=== PATIENT | female | born 1950 | race Caucasian/White ===

== ENCOUNTER 2021-10-25 09:29 | Inpatient (IN) | payer MEDICARE, OTHER ==
[~2021-10-25] VITALS: Ht 157.5 cm; Wt 74.8 kg
[2021-10-25 10:00] LABS: HEMATOCRIT 42.4 % (31.2-41.9); MEAN CORPUSCULAR HEMOGLOBIN 30.4 uug (24.7-32.8); MEAN CORPUSCULAR VOLUME 91.8 fL (75.5-95.3); PLATELET COUNT (AUTO) 184 K/uL (179-408)
[2021-10-25 10:08] LABS: CARBON DIOXIDE 28 mmol/L (21-32); CHLORIDE 101 mmol/L (98-107); CREATININE 2.8 mg/dL (0.6-1.3); GLUCOSE 118 mg/dL (74-106); POTASSIUM 4.6 mmol/L (3.5-5.1); UREA NITROGEN, BLOOD 74 mg/dL (7-18)
[2021-10-25 10:24] LABS: ALANINE AMINOTRANSFERASE 15 U/L (14-59); ALKALINE PHOSPHATASE 72 U/L (50-136); ASPARTATE AMINOTRANSFERASE 18 U/L (15-37); BILIRUBIN,DIRECT 0.3 mg/dL (0.0-0.2); BILIRUBIN,TOTAL 0.6 mg/dL (0.2-1.0); TOTAL PROTEIN, SERUM 7.8 g/dL (6.4-8.2)
[2021-10-25 10:29] LABS: ABG BASE EXCESS -0.1 mmol/L; ABG HCO3 27.2 mmol/L; ABG PCO2 54.8 mmHg (35.0-45.0); ABG PH 7.313 (7.350-7.450); ABG PO2 68.9 mmHg (75.0-100.0); ABG SITE LEFT BRACHIAL; ABG TOTAL HEMOGLOBIN 14.2 G/dL (12.0-16.0); COHb 0.7 % (0.5-1.5); MetHb 0.2 % (0.0-1.5); O2Hb 92.9 % (94.0-97.0); VENT MODE Nasal Cannula
[2021-10-25] MEDS ORDERED: GABA-532 PO (10:40)
[2021-10-25] MEDS ORDERED: TRAZ-182 PO (10:40)
[2021-10-25] MEDS ORDERED: BACL20TA PO (10:40)
[2021-10-25] MEDS ORDERED: CLON0.1T PO (10:40)
[2021-10-25] MEDS ORDERED: QUET50TA PO (10:40)
[2021-10-25] MEDS ORDERED: ASPI81TA31 PO (10:40)
[2021-10-25] MEDS ORDERED: LOSA50TA39 PO (10:40)
[2021-10-25] MEDS ORDERED: NIFE-34 PO (10:40)
[2021-10-25] MEDS ORDERED: BUPR1FIL3 SL (10:40)
[2021-10-25] MEDS ORDERED: METO-356 PO (10:40)
[2021-10-25 10:58] LABS: *BILIRUBIN,URIN 1+ (NEGATIVE); *BLOOD, URINE NEGATIVE (NEGATIVE); *CLARITY,URINE CLEAR (CLEAR); *COLOR,URINE YELLOW (YELLOW); *KETONES,URINE NEGATIVE (NEGATIVE); *UROBILINOGEN,URINE 0.2 E.U./dl (NORMAL); LEUKOCYTE ESTERASE ,URINE NEGATIVE (NEGATIVE); NITRITE, URINE NEGATIVE (NEGATIVE); PH,URINE 5.5 (5.0-8.0); UGLUCOSE NEGATIVE (NEGATIVE)
[2021-10-25] MEDS ORDERED: PIPERACILLIN SODIUM/TAZOBACTAM 3.375 G in IV DEXTROSE 5% 50 ML IV ONE (11:00)
[2021-10-25] MEDS ORDERED: IV NORMAL SALINE 1000 ML BAG IV ONE (11:00)
[2021-10-25] MEDS ORDERED: PIPERACILLIN/TAZOBACTAM/D5W 50 ML IV ONE ×2 (11:16→22:39)
[2021-10-25] MEDS ORDERED: ASPIRIN 300 MG RECTAL SUPP RC ONE ×2 (12:15→12:26)
[2021-10-25] MEDS ORDERED: MORPHINE SULFATE 2 MG/1 ML DISP.SYRIN IV ONE ×2 (12:15→14:15)
[2021-10-25] MEDS ORDERED: DEXAMETHASONE SOD PHOSPHATE 4 MG INJ IV ONE (12:15)
[2021-10-25] MEDS ORDERED: MORPHINE SULFATE 2 MG/1 ML DISP.SYRIN ONE ×2 (12:25→14:20)
[2021-10-25] MEDS ORDERED: DEXAMETHASONE SOD PHOSPHATE 10 MG INJ ONE (12:25)
[2021-10-25] MEDS ORDERED: ALBUTEROL SULFATE 2.5 MG/ 0.5 ML NEBU NEB PRN (14:45)
[2021-10-25] MEDS ORDERED: ALBUTEROL SULFATE 2.5 MG/3 ML NEBU NEB PRN (15:00)
[2021-10-25] MEDS: IV D5 1/2 NS 1000 ML 1,000 ML IV PRN (15:49)
--- NOTE | 2021-10-25 16:35 | NUR ---
PT RESTING, AROUSABLE TO PAINFUL STIMULI.
[2021-10-25] MEDS ORDERED: PIPERACILLIN/TAZO 2.25 G in IV DEXTROSE 5% 50 ML IV SCH (18:00)
--- NOTE | 2021-10-25 19:20 | NUR ---
Assumed care of patient from day shift SOLA Bartlett. Patient [id number] bed. Asleep, appears lethargic. Inno apparent distress. On O2 at 4LPM via NC. IVF infusing.
[2021-10-25] MEDS ORDERED: PIPERACILLIN SODIUM/TAZOBACTAM 3.375 G in IV DEXTROSE 5% 100 ML IV SCH (23:00)
--- NOTE | 2021-10-26 | NUR ---
Patient still asleep. Arouse to tactile stimuli. Non-verbal. Only makes nonsensical sound. O2 taper down to 3LPM via NC. O2 sat at 98% at this time. No signs or symptoms of pain or SOB. IV antibiotics infusing at this time. Vigil catheter intact and draining via gravity. Turned and reposition for comfort.
--- NOTE | 2021-10-26 05:53 | NUR ---
Pt remains asleep in bed. In no apparent distress. No signs or symptoms or pain or SOB. On O2 at 2LPM via NC in place. O2 sat at 100% at this time. Sinus rhythm, sinus tachy on tele with HR between 80's to 105's./min. IV site on left hand intact and patent. IVF infusing. No adverse effect noted from IV antibitoics. No coughing noted. Fole catheter intact and draining via gravity. With 850ml aubrie color urine output the entire shift. Turned and reposition for comfort.
[2021-10-26 06:08] LABS: HEMATOCRIT 38.8 % (31.2-41.9); MEAN CORPUSCULAR HEMOGLOBIN 30.1 uug (24.7-32.8); MEAN CORPUSCULAR VOLUME 90.4 fL (75.5-95.3); PLATELET COUNT (AUTO) 159 K/uL (179-408)
[2021-10-26 06:26] LABS: ALANINE AMINOTRANSFERASE 13 U/L (14-59); ALKALINE PHOSPHATASE 65 U/L (50-136); ASPARTATE AMINOTRANSFERASE 17 U/L (15-37); BILIRUBIN,TOTAL 0.4 mg/dL (0.2-1.0); CARBON DIOXIDE 30 mmol/L (21-32); CHLORIDE 105 mmol/L (98-107); CHOLESTEROL 198 mg/dL (<200); CREATININE 1.5 mg/dL (0.6-1.3); GLUCOSE 197 mg/dL (74-106); HDL CHOLESTEROL 66 mg/dL (40-60); MAGNESIUM 2.6 mg/dL (1.8-2.4); POTASSIUM 4.6 mmol/L (3.5-5.1); TOTAL PROTEIN, SERUM 7.2 g/dL (6.4-8.2); TRIGLYCERIDES 80 MG/DL (30-150); UREA NITROGEN, BLOOD 71 mg/dL (7-18)
[2021-10-26 06:38] LABS: PHOSPHOROUS 3.5 mg/dL (2.5-4.9)
[2021-10-26] MEDS: MORPHINE SULFATE 2 MG/1 ML DISP.SYRIN IV PRN (07:40)
--- NOTE | 2021-10-26 07:42 | NUR ---
RESTLESS, AWAKE, HYPERTENSIVE - MEDICATED FOR PAIN
[2021-10-26] MEDS ORDERED: ONDANSETRON 4 MG/2 ML VIAL ONE (07:43)
[2021-10-26] MEDS ORDERED: MORPHINE SULFATE 2 MG/1 ML DISP.SYRIN ONE (07:43)
[2021-10-26] MEDS: ONDANSETRON 4 MG/2 ML VIAL IV PRN (07:51)
[2021-10-26] MEDS: PIPERACILLIN SODIUM/TAZOBACTAM 3.375 G in IV DEXTROSE 5% 100 ML IV SCH ×3 (08:24→23:26)
[2021-10-26] MEDS ORDERED: PIPERACILLIN/TAZOBACTAM/D5W 50 ML IV ONE ×3 (08:28→23:16)
[2021-10-26] MEDS: HEPARIN SODIUM,PORCINE 5,000 UNITS/ML VIAL SQ SCH ×2 (08:29→22:01)
[2021-10-26] MEDS: PANTOPRAZOLE SODIUM 40 MG VIAL IV SCH (08:31)
[2021-10-26] MEDS ORDERED: PANTOPRAZOLE SODIUM 40 MG VIAL ONE (08:35)
[2021-10-26] MEDS ORDERED: HEPARIN SODIUM,PORCINE 5,000 UNITS/ML VIAL ONE ×2 (08:35→22:05)
[2021-10-26] MEDS: hydrALAZINE HCL 20 MG/1 ML VIAL IV PRN (08:50)
--- NOTE | 2021-10-26 08:50 | NUR ---
Elevated BP 183/88, Hydrazaline 10mg prn sow IVP given, will monitor.
[2021-10-26] MEDS ORDERED: hydrALAZINE HCL 20 MG/1 ML VIAL ONE (08:57)
[2021-10-26] MEDS: IV D5 1/2 NS 1000 ML 1,000 ML IV PRN (10:28)
--- NOTE | 2021-10-26 10:34 | NUR ---
PT out of Er for CT scan.
--- NOTE | 2021-10-26 11:10 | NUR ---
Pt back from Ct, NAD noted.
--- NOTE | 2021-10-26 22:38 | NUR ---
Pt. admitted to Telemetry, under care of Dr. Borrego Belongs List completed
[2021-10-26 23:42] VITALS: BP 183/82
[2021-10-27] MEDS: hydrALAZINE HCL 20 MG/1 ML VIAL IV PRN ×3 (00:22→17:34)
[2021-10-27] MEDS: ACETAMINOPHEN 650 MG SUPP.RECT RC PRN ×2 (04:36→21:46)
--- NOTE | 2021-10-27 05:00 | NUR ---
Pt HR sustaining 135 on monitor, pt is sinus. Deep suctioned for thick secretions and Tylenol suppository given for temp of 99.2. Pt is desatting at 85% on 2L NC, switched to 10L simple mask and is now satting 95%. Dr. Stafford paged for possible orders for increased HR.
--- NOTE | 2021-10-27 06:40 | NUR ---
RT TRIED ABG, BUT PT WOULDNT STOP SHAKING/MOVING. PT ON HEPARIN,SO PT WOULDNT STOP BLEEDING.RN ASKED TO TRY LATER.ENDORSED TO MORNING SHIFT.
[2021-10-27 07:07] LABS: HEMATOCRIT 39.5 % (31.2-41.9); MEAN CORPUSCULAR HEMOGLOBIN 31.1 uug (24.7-32.8); MEAN CORPUSCULAR VOLUME 90.6 fL (75.5-95.3); PLATELET COUNT (AUTO) 214 K/uL (179-408)
[2021-10-27 07:31] LABS: BILIRUBIN,TOTAL 0.6 mg/dL (0.2-1.0); CREATININE 1.1 mg/dL (0.6-1.3); MAGNESIUM 2.6 mg/dL (1.8-2.4); PHOSPHOROUS 2.2 mg/dL (2.5-4.9); POTASSIUM 4.2 mmol/L (3.5-5.1); TOTAL PROTEIN, SERUM 7.8 g/dL (6.4-8.2)
[2021-10-27 07:42] LABS: ABG BASE EXCESS 1.9 mmol/L; ABG PCO2 49.5 mmHg (35.0-45.0); ABG PO2 109.4 mmHg (75.0-100.0); ABG SITE RIGHT RADIAL; ABG TOTAL HEMOGLOBIN 14.3 G/dL (12.0-16.0); COHb 0.2 % (0.5-1.5); MetHb 0.4 % (0.0-1.5); O2Hb 97.5 % (94.0-97.0); VENT MODE Mask - Simple 10L
[2021-10-27] MEDS: PIPERACILLIN SODIUM/TAZOBACTAM 3.375 G in IV DEXTROSE 5% 100 ML IV SCH ×3 (08:34→23:12)
[2021-10-27] MEDS: PANTOPRAZOLE SODIUM 40 MG VIAL IV SCH (08:35)
--- NOTE | 2021-10-27 09:15 | NUR ---
Patient BP 212/ 99. CHAYO Ferrer informed. Hydralazine IV given. Will continue to monitor.
[2021-10-27] MEDS: HEPARIN SODIUM,PORCINE 5,000 UNITS/ML VIAL SQ SCH ×2 (09:58→21:46)
[2021-10-27] MEDS ORDERED: CLONIDINE TTS 2 PATCH TD SCH (10:00)
--- NOTE | 2021-10-27 10:10 | NUR ---
Patient BP 204/98. CHAYO Ferrer informed. Orders given and carried out. Catapres applied. Will continue to monitor.
[2021-10-27] MEDS: MORPHINE SULFATE 2 MG/1 ML DISP.SYRIN IV PRN ×2 (11:55→23:12)
[2021-10-27] MEDS: LABETALOL HCL 100 MG/20 ML VIAL IV PRN (12:15)
[2021-10-27 12:53] VITALS: BP 166/88
[2021-10-27] MEDS ORDERED: SODIUM PHOSPHATE MM 15 MMOL in IV NORMAL SALINE 250 ML IV ONE (17:00)
[2021-10-27 17:02] VITALS: BP 185/93
[2021-10-27 18:47] VITALS: BP 168/66
--- NOTE | 2021-10-27 19:00 | NUR ---
Patient resting in bed. AOx1-2. On 10L O2 via simple mask, saturating 98%. Patient NSR on satellite project site monitor. Patient kept clean and comfortable. CHEN midline patent and intact. Left FA #20 patent and intact. Vigil catheter draining clear, yellow urine. Will endorse to incoming shift for continuity of care.
[2021-10-27 20:43] VITALS: BP 151/66
[2021-10-27] MEDS: IV D5 1/2 NS 1000 ML 1,000 ML IV PRN (22:00)
[2021-10-28 00:31] VITALS: BP 177/71
[2021-10-28] MEDS: hydrALAZINE HCL 20 MG/1 ML VIAL IV PRN (00:39)
[2021-10-28] MEDS: MORPHINE SULFATE 2 MG/1 ML DISP.SYRIN IV PRN ×4 (04:10→23:19)
[2021-10-28] MEDS: LABETALOL HCL 100 MG/20 ML VIAL IV PRN ×2 (04:14→10:52)
[2021-10-28 04:25] VITALS: BP 188/83
--- NOTE | 2021-10-28 05:44 | NUR ---
Pt slept intermittently. C/o pain "all over," morphine given, tolerated well. BP elevated to 188/70 and HR 145, given Labatolol, tolerated well. BP now going down to 171/77 HR 96. Titrated to 6L simple mask, pt satting at 96%. Will endorse to day shift.
[2021-10-28 06:58] LABS: HEMATOCRIT 37.8 % (31.2-41.9); MEAN CORPUSCULAR HEMOGLOBIN 30.4 uug (24.7-32.8); MEAN CORPUSCULAR VOLUME 91.5 fL (75.5-95.3); PLATELET COUNT (AUTO) 127 K/uL (179-408)
[2021-10-28 07:34] LABS: BILIRUBIN,TOTAL 0.4 mg/dL (0.2-1.0); CREATININE 0.7 mg/dL (0.6-1.3); MAGNESIUM 1.9 mg/dL (1.8-2.4); PHOSPHOROUS 2.5 mg/dL (2.5-4.9); POTASSIUM 3.3 mmol/L (3.5-5.1)
[2021-10-28] MEDS: CLONIDINE HCL 0.1 MG TABLET PO SCH ×3 (09:00→21:46)
[2021-10-28] MEDS: PIPERACILLIN SODIUM/TAZOBACTAM 3.375 G in IV DEXTROSE 5% 100 ML IV SCH ×2 (10:29→15:53)
[2021-10-28] MEDS: PANTOPRAZOLE SODIUM 40 MG VIAL IV SCH (10:29)
[2021-10-28] MEDS: HEPARIN SODIUM,PORCINE 5,000 UNITS/ML VIAL SQ SCH ×2 (10:31→21:45)
[2021-10-28] MEDS: POTASSIUM CHLORIDE 50 ML IV SCH ×2 (11:10→12:58)
[2021-10-28 11:49] VITALS: BP 193/56
[2021-10-28] MEDS: ONDANSETRON 4 MG/2 ML VIAL IV PRN (13:57)
[2021-10-28] MEDS: IV D5 1/2 NS 1000 ML 1,000 ML IV PRN (15:49)
[2021-10-28 16:00] VITALS: BP 149/74
--- NOTE | 2021-10-28 18:27 | NUR ---
Pt is a/o x 3, repetitive and forgetful. Pt presents with normal sinus to sinus tachy on telemetry, She is currently saturating 99% on 6L via simple mask. Pt is currently NPO status due to failed swallow eval with speech therapist. Pt continuously asked for apple juice and attempted to give her a sip. Pt tolerated well with straw, no choking or coughing after fluid intake. IV intact and patent, will endorse to steam and power supervisor.
--- NOTE | 2021-10-28 19:30 | NUR ---
Received patient laying down in bed. Alert and oriented x 2, able to follow simple commands. Sinus rhythm on tele monitor. On 6L face mask, saturating 98%. Vigil catheter patent and intact, draining yellow urine. Midline on right upper arm patent and intact, IV on left forearm patent and intact. No signs of distress. Bed alarm on, bed in the lowest position. Will continue to monitor.
--- NOTE | 2021-10-28 20:00 | NUR ---
Patient is more alert; patient passed bedside swallow test;
[2021-10-28] MEDS ORDERED: IV NORMAL SALINE 250 ML IV ONE (21:02)
[2021-10-28] MEDS ORDERED: SWABABLE VALVE TRANSFER SET EA MC ONE (21:02)
[2021-10-28] MEDS ORDERED: IOHEXOL 350 100 ML INFUS..BTL ONE (21:02)
[2021-10-28 22:25] VITALS: BP 150/76
[2021-10-28 22:26] LABS: *BILIRUBIN,URIN NEGATIVE (NEGATIVE); *BLOOD, URINE 3+ (NEGATIVE); *CLARITY,URINE CLOUDY (CLEAR); *COLOR,URINE YELLOW (YELLOW); *KETONES,URINE NEGATIVE (NEGATIVE); *UROBILINOGEN,URINE 0.2 E.U./dl (NORMAL); LEUKOCYTE ESTERASE ,URINE 2+ (NEGATIVE); NITRITE, URINE NEGATIVE (NEGATIVE); UGLUCOSE NEGATIVE (NEGATIVE)
[2021-10-28 22:27] LABS: *CREATININE,URINE 90.1 mg/dL (30-125); *URINE TOTAL PROTEIN RANDOM 81.5 mg/dL (<150/24HR)
[2021-10-28 22:28] LABS: BACTERIA,URINE NONE SEEN /HPF (NONE SEEN); RBC,URINE TNTC /HPF (0-3); SQUAMOUS EPITHELIAL CELL,UR MODERATE /HPF (NONE SEEN); URIC ACID CRYSTALS,URINE MANY /HPF (NONE SEEN); WBC,URINE TNTC /HPF (0-3); YEAST,URINE MANY /HPF (NONE SEEN)
--- NOTE | 2021-10-28 23:50 | NUR ---
At 2315, patient complaining of generalized pain throughout body, 05/04. PRN morphine given. Patient tolerated medication well. At 2350, patient states relief from pain.
[2021-10-29] VITALS (7 sets, daily range): BP systolic 109–165; BP diastolic 42–79
[2021-10-29] MEDS: PIPERACILLIN SODIUM/TAZOBACTAM 3.375 G in IV DEXTROSE 5% 100 ML IV SCH ×2 (00:20→09:47)
[2021-10-29] MEDS: CLONIDINE HCL 0.1 MG TABLET PO SCH (05:34)
[2021-10-29] MEDS: IV D5 1/2 NS 1000 ML 1,000 ML IV PRN (06:07)
[2021-10-29 06:34] LABS: HEMATOCRIT 31.5 % (31.2-41.9); MEAN CORPUSCULAR HEMOGLOBIN 30.5 uug (24.7-32.8); MEAN CORPUSCULAR VOLUME 91.1 fL (75.5-95.3); PLATELET COUNT (AUTO) 102 K/uL (179-408)
--- NOTE | 2021-10-29 06:51 | NUR ---
Patient slept intermittently through the night. Sinus rhythm on tele monitor. On 6L simple face mask saturating 98%. No signs of distress. All need attended to and met. Bed in the lowest position, bed alarm on, call light within reach.
[2021-10-29 07:11] LABS: CREATININE 0.6 mg/dL (0.6-1.3); MAGNESIUM 1.6 mg/dL (1.8-2.4); PHOSPHOROUS 1.3 mg/dL (2.5-4.9); POTASSIUM 3.3 mmol/L (3.5-5.1)
[2021-10-29] MEDS: AMLODIPINE 5 MG TABLET PO SCH (09:00)
[2021-10-29] MEDS: LOSARTAN POTASSIUM 50 MG TABLET PO SCH (09:00)
--- NOTE | 2021-10-29 09:00 | NUR ---
Received pt. Pt has been titrated to 2L NC saturating 95%. ST reevaluation due to pt more awake and alert today.
[2021-10-29] MEDS: METOPROLOL SUCCINATE XL 50 MG TAB.SR.24H PO SCH (09:46)
[2021-10-29] MEDS: PANTOPRAZOLE SODIUM 40 MG VIAL IV SCH (09:47)
[2021-10-29] MEDS: POTASSIUM CHLORIDE 50 ML IV SCH ×4 (09:48→13:15)
[2021-10-29] MEDS: MAGNESIUM SULFATE/D5W 100 ML IV SCH ×3 (09:48→12:11)
[2021-10-29] MEDS: HEPARIN SODIUM,PORCINE 5,000 UNITS/ML VIAL SQ SCH ×2 (09:50→21:12)
--- NOTE | 2021-10-29 10:27 | NUR ---
Pt titrated off of oxygen. Pt is saturating 94-96% on room air. Will continue to monitor.
[2021-10-29 14:06] LABS: A/G RATIO 0.8 (0.7-1.7); ALBUMIN 2.9 g/dL (2.9-4.4); ALPHA-1-GLOBULIN 0.4 g/dL (0.0-0.4); ALPHA-2-GLOBULIN 0.9 g/dL (0.4-1.0); GAMMA GLOBULIN 1.1 g/dL (0.4-1.8); GLOBULIN, TOTAL 3.5 g/dL (2.2-3.9); M-SPIKE Not Observed g/dL (Not Observed)
[2021-10-29] MEDS: MORPHINE SULFATE 2 MG/1 ML DISP.SYRIN IV PRN (15:01)
[2021-10-29] MEDS ORDERED: NEUTRA PHOS PACKET PO ONE (15:15)
[2021-10-29] MEDS: ONDANSETRON 4 MG/2 ML VIAL IV PRN (15:18)
[2021-10-29] MEDS ORDERED: SODIUM PHOSPHATE MM 15 MMOL in IV NORMAL SALINE 250 ML IV ONE (17:00)
[2021-10-29] MEDS: GABAPENTIN 100 MG CAPSULE PO SCH (17:24)
[2021-10-29] MEDS: QUETIAPINE FUMARATE 25 MG TABLET PO SCH (17:24)
--- NOTE | 2021-10-29 19:30 | NUR ---
Patient in bed in high fowlers position. Denies any pain or discomfort. Patient speech is unclear, stutters. Alert to self with disorientation to time and place. Orientation to environment provided. Patient is passive at teachings. On RA, no SOB noted, 02 sats 97%. Right upper arm Midline in place, clean and intact. Safety measures initiated and call light within reach.
[2021-10-29] MEDS: hydrALAZINE HCL 20 MG/1 ML VIAL IV PRN (21:49)
[2021-10-30] MEDS: MORPHINE SULFATE 2 MG/1 ML DISP.SYRIN IV PRN ×3 (02:00→20:44)
[2021-10-30 04:00] VITALS: BP 167/78
[2021-10-30] MEDS: IV D5 1/2 NS 1000 ML 1,000 ML IV PRN ×2 (04:30→20:45)
[2021-10-30] MEDS: hydrALAZINE HCL 20 MG/1 ML VIAL IV PRN ×2 (05:21→10:58)
--- NOTE | 2021-10-30 06:06 | NUR ---
Patient Slept intermittently. Still noted with hypertension, PRN Apresoline provided as per orders- effective. No other significant events. Call light within reach.
[2021-10-30 06:52] LABS: HEMATOCRIT 33.8 % (31.2-41.9); MEAN CORPUSCULAR HEMOGLOBIN 30.8 uug (24.7-32.8); PLATELET COUNT (AUTO) 117 K/uL (179-408)
[2021-10-30 07:16] LABS: CREATININE 0.6 mg/dL (0.6-1.3); MAGNESIUM 2.1 mg/dL (1.8-2.4); PHOSPHOROUS 2.6 mg/dL (2.5-4.9); POTASSIUM 3.4 mmol/L (3.5-5.1)
[2021-10-30] MEDS: ONDANSETRON 4 MG/2 ML VIAL IV PRN ×2 (08:15→20:44)
[2021-10-30] MEDS: ASPIRIN 81 MG TAB.CHEW PO SCH (08:21)
[2021-10-30] MEDS: QUETIAPINE FUMARATE 25 MG TABLET PO SCH ×2 (08:21→16:28)
[2021-10-30] MEDS: PANTOPRAZOLE SODIUM 40 MG VIAL IV SCH (08:21)
[2021-10-30] MEDS: GABAPENTIN 100 MG CAPSULE PO SCH ×2 (08:21→16:28)
[2021-10-30] MEDS: HEPARIN SODIUM,PORCINE 5,000 UNITS/ML VIAL SQ SCH ×2 (08:23→20:43)
[2021-10-30] MEDS ORDERED: POTASSIUM CHLORIDE 20 MEQ POWDER PACKET PO ONE (08:30)
[2021-10-30] MEDS: AMLODIPINE 5 MG TABLET PO SCH (08:58)
[2021-10-30] MEDS: LOSARTAN POTASSIUM 50 MG TABLET PO SCH ×2 (08:59→20:39)
[2021-10-30] MEDS: METOPROLOL SUCCINATE XL 50 MG TAB.SR.24H PO SCH (08:59)
[2021-10-30 11:25] VITALS: BP 186/82
[2021-10-30 11:42] VITALS: BP 158/73
--- NOTE | 2021-10-30 13:01 | NUR ---
Patient complained of generalized pain, 07/04. BP 195/61 HR 94. Morphine IV given. Will continue to monitor.
[2021-10-30] MEDS: ACETAMINOPHEN 325 MG TABLET PO PRN (15:02)
[2021-10-30 15:10] VITALS: BP 160/64
--- NOTE | 2021-10-30 20:00 | NUR ---
AAO to person. Denies any discomfort at this time. Patient in high fowlers position. on RA, no SOB. Patient c/o nausea and pain. Patient requesting Baclofen for muscle relaxant, benadryl and flonase for allergies. Noted with back itching. Moisturizer provided, no rashes noted. Safety measures initiated. Call light within reach.
[2021-10-30 20:15] VITALS: BP 177/75
[2021-10-30] MEDS ORDERED: diphenhydrAMINE 25 MG CAP PO PRN (22:15)
[2021-10-30] MEDS ORDERED: FLUTICASONE PROP NASAL SPRAY 16 GM BOTTLE NS SCH (22:15)
[2021-10-30] MEDS: BACLOFEN 10 MG TABLET PO SCH (22:54)
[2021-10-31] MEDS: ACETAMINOPHEN 325 MG TABLET PO PRN (01:27)
[2021-10-31] MEDS: hydrALAZINE HCL 20 MG/1 ML VIAL IV PRN ×2 (01:27→05:53)
--- NOTE | 2021-10-31 01:56 | NUR ---
Noted with blister to lateral right heel and left lateral heel. Noted with dark discoloration underneath left heel blister. Patient c/o tenderness to sites. Heels floated off mattress. Wound consult and oil refinery operator consult ordered. Addendum: 10/31/21 at 0201 by FRANCIS WHITTAKER RN Left heel [id number], right heel [id number]
[2021-10-31] MEDS: ONDANSETRON 4 MG/2 ML VIAL IV PRN (03:34)
[2021-10-31 04:15] VITALS: BP 190/71
--- NOTE | 2021-10-31 05:00 | NUR ---
Dr. Stafford made aware of patients b/p 194-97, elevated temp, and bilateral heel blisters. Patient SBP continues to be above 170's. Patient is anxious and noted to be screaming for different needs. Call light is within reach but states she is not strong enough to use it. She is able to use it occasionally during this shift. Patient able to follow calming techniques when this RN instructs her.
[2021-10-31] MEDS: MORPHINE SULFATE 2 MG/1 ML DISP.SYRIN IV PRN (05:28)
[2021-10-31] MEDS ORDERED: PANTOPRAZOLE SODIUM 40 MG TABLET.DR PO SCH (07:00)
[2021-10-31] MEDS ORDERED: FLUTICASONE PROP NASAL SPRAY 16 GM BOTTLE NS PRN (07:15)
[2021-10-31 07:35] VITALS: BP 185/85
[2021-10-31] MEDS: HEPARIN SODIUM,PORCINE 5,000 UNITS/ML VIAL SQ SCH (08:23)
[2021-10-31] MEDS: hydrALAZINE HCL 50 MG TABLET PO SCH ×2 (08:38→13:16)
[2021-10-31] MEDS: CLONIDINE HCL 0.2 MG TABLET PO SCH ×2 (08:38→13:16)
[2021-10-31] MEDS: BACLOFEN 10 MG TABLET PO SCH ×3 (08:39→16:56)
[2021-10-31] MEDS: GABAPENTIN 100 MG CAPSULE PO SCH ×2 (08:40→16:56)
[2021-10-31] MEDS: QUETIAPINE FUMARATE 25 MG TABLET PO SCH ×2 (08:41→16:56)
[2021-10-31] MEDS: ASPIRIN 81 MG TAB.CHEW PO SCH (08:42)
[2021-10-31] MEDS: LOSARTAN POTASSIUM 50 MG TABLET PO SCH (08:43)
[2021-10-31] MEDS: METOPROLOL SUCCINATE XL 50 MG TAB.SR.24H PO SCH (08:43)
[2021-10-31] MEDS ORDERED: AMLODIPINE 10 MG TABLET PO SCH (09:00)
[2021-10-31] MEDS ORDERED: HYDR50TA68 PO (09:51)
[2021-10-31] MEDS ORDERED: LOSA50TA3 PO (09:51)
[2021-10-31] MEDS ORDERED: AMLO10TA59 PO (09:51)
[2021-10-31] MEDS ORDERED: METO-357 PO (09:51)
[2021-10-31] MEDS ORDERED: CLON0.2T PO (09:51)
[2021-10-31 10:25] VITALS: BP 154/74
[2021-10-31 12:17] VITALS: BP 155/65
[2021-10-31] MEDS ORDERED: FLUCONAZOLE 100 MG TABLET PO SCH (13:15)
[2021-10-31] MEDS: GLUCERNA SHAKE VANILLA 237 ML CAN PO SCH ×2 (13:54→17:00)
[2021-10-31 16:06] VITALS: BP 114/51
--- NOTE | 2021-10-31 18:27 | NUR ---
Discharged patient to [facility]. AOx1-2. On room air. No signs of acute distress. BP 122/46 HR 86. IV access removed. ID armband removed. Discharge paperwork sent to facility. Wound pictures taken and placed in chart. Patient left hospital via ambulance gurney.
== END 2021-10-31 18:00 | DRG 280 ==
LOC: ER 09:29 → TRANSITION 14:56 → TELE3 10-26 22:28 → MEDSURG3 10-29 10:25
PROVIDERS: ADMIT Internal Medicine; ATTEND Hospitalist
PROC: 05H533Z Insertion of Infusion Device into Right Subclavian Vein, Percutaneous Approach (ICD-10-PCS; principal; 2021-10-27)
PROC: B546ZZA Ultrasonography of Right Subclavian Vein, Guidance (ICD-10-PCS; 2021-10-27)
DX: I16.9 Hypertensive crisis, unspecified (principal); J12.9 Viral pneumonia, unspecified; I21.A1 Myocardial infarction type 2; J96.01 Acute respiratory failure with hypoxia; G92.8 Other toxic encephalopathy; N17.0 Acute kidney failure with tubular necrosis; J96.02 Acute respiratory failure with hypercapnia; D68.59 Other primary thrombophilia; E44.1 Mild protein-calorie malnutrition; B37.49 Other urogenital candidiasis; M84.421A Pathological fracture, right humerus, initial encounter for fracture; B96.20 Unspecified Escherichia coli [E. coli] as the cause of diseases classified elsewhere; E83.39 Other disorders of phosphorus metabolism; I10 Essential (primary) hypertension; K70.30 Alcoholic cirrhosis of liver without ascites; Z20.822 Contact with and (suspected) exposure to COVID-19; Z87.440 Personal history of urinary (tract) infections; E88.09 Other disorders of plasma-protein metabolism, not elsewhere classified; F03.90 Unspecified dementia, unspecified severity, without behavioral disturbance, psychotic disturbance, mood disturbance, and anxiety; Z74.09 Other reduced mobility; Z68.30 Body mass index [BMI] 30.0-30.9, adult; G89.4 Chronic pain syndrome; E55.9 Vitamin D deficiency, unspecified; M47.895 Other spondylosis, thoracolumbar region; F10.10 Alcohol abuse, uncomplicated; E83.41 Hypermagnesemia; I35.0 Nonrheumatic aortic (valve) stenosis; I35.2 Nonrheumatic aortic (valve) stenosis with insufficiency; E87.6 Hypokalemia; J30.9 Allergic rhinitis, unspecified; M41.9 Scoliosis, unspecified; R53.1 Weakness; Z79.82 Long term (current) use of aspirin; Z91.81 History of falling; Z86.19 Personal history of other infectious and parasitic diseases
CPT/HCPCS: 36415; 36600; 70030-TC; 70450; 71045; 71275; 73200; 83605; 83735; 83970; 84100; 84155; 84156; 84165; 84300; 85025; 85610; 85730; 87040; 87086; 93005; 93307; 97161; A4663; A6209; C9113; G0378; J0360; J1100; J1644; J2270; J2405; J2543; J3475; J3480; J3490; J3535; J7030; J7050; J7060; Q0163; Q9967; U0003